=== PATIENT | male | born 1995 | race Caucasian/White ===

== ENCOUNTER 2017-02-01 10:43 | Emergency (ER) | payer OTHER ==
--- NOTE | 2017-02-01 11:37 | ERNOTE ---
Medical Problem HPI - General Chief Complaint: General Assessment Time Seen by Provider: 02/01/17 11:32 Source: patient Exam Limitations: no limitations - Immun/Allergies/Home Medications Immunizations: IMMUNIZATION HX Immunizations Up to Date Yes History of Influenza Vaccine No Hx Pneumococcal Vaccination No Allergies/Adverse Reactions: Allergies Penicillins Allergy (Verified 02/01/17 11:04) Sulfa (Sulfonamide Antibiotics) Allergy (Verified 02/01/17 11:04) Home Medications: HOME MEDICATIONS Ibuprofen [Motrin] 800 mg PO TID PRN #30 tablet 02/01/17 [Last Taken Unknown] Levothyroxine Sodium [Levo-T] 50 mcg PO DAILY 02/01/17 [Last Taken Unknown] - History of Present History Narrative: This patient presents to the emergency room one hour after 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 Patient felt a pop in his right wrist and since then he's had limitation of movement of the right wrist in flexion. Subsequently he presents to the emergency room. He has taken no medication for this. Review of Systems - Review of Systems Constitutional: Present: no symptoms reported EYE: Present: no symptoms reported ENT: Present: no symptoms reported Respiratory: Present: no symptoms reported Cardiology: Present: no symptoms reported Gastrointestinal/Abdominal: Present: no symptoms reported Genitourinary: Present: no symptoms reported Musculoskeletal: Present: See HPI - Patient's Past Medical History Patient History - Medical: Hypothyroidism Patient History - Cardiac/Respiratory: No pertinent hx Patient History - Cancer: Bone Patient History - Surgical Procedures: T & A Patient History - Other: None - Social History Living Situations: home Abuse History: No History of abuse Psych History: No pertinent hx Smoking Status: Current some day smoker Have you smoked in the past 12 months: Yes Do you dip or chew tobacco: No Alcohol Use: none Drug Use: none - Immunizations Immunizations Up to Date: Yes Hx Pneumococcal Vaccination: No History of Influenza Vaccine: No Physical Exam - Physical Exam General Appearance: Present: wd/wn, alert, no apparent distress Head Exam: Present: normal inspection, no evidence of injury Respiratory: Present: no respiratory distress, normal breath sounds, no accessory muscle use, chest nontender, lungs clear Cardiovascular/Chest: Present: regular rate, rhythm, no murmur, normal peripheral pulses Extremity Exam: Present: other - I see no signs of duffy swelling ecchymosis or any other signs of trauma to the right wrist or forearm. 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 Neurological Exam: Present: alert, oriented, normal mood/affect, no motor/ sensory deficits ED Progress - Vital Signs Patient's Vital Signs:: I have reviewed the patient's vital signs. 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 with stimulation of the flexor muscles of the right wrist, this injury is consistent with symptoms as if patient worked out the corresponding muscles repeatedly. He will be immobilized and prescribed Ibuprofen for his pain. He is off work till cleared by PCP and he is to see his PCP in 48 hours Departure - Departure Clinical Impression: Wrist pain, right Disposition: Home self-care Condition: Good Instructions: Wrist Sprain Prescriptions: Ibuprofen [Motrin] 800 mg PO TID PRN #30 tablet PRN Reason: Pain
[2017-02-01] MEDS ORDERED: IBUPROFEN 400 MG TABLET PO ONE (11:38)
[2017-02-01] MEDS ORDERED: IBUPROFEN 400 MG TABLET ONE (11:48)
[2017-02-01 12:24] VITALS: BP 137/89
== END 2017-02-01 12:50 | disposition home or self-care (01) ==
LOC: ER 10:43
DX: M25.531 Pain in right wrist (principal); X58.XXXA Exposure to other specified factors, initial encounter; Y93.H3 Activity, building and construction; Y92.63 Factory as the place of occurrence of the external cause; Y99.0 Civilian activity done for income or pay; E03.9 Hypothyroidism, unspecified; F17.200 Nicotine dependence, unspecified, uncomplicated